=== PATIENT | male | born 1985 | race Caucasian/White ===

== ENCOUNTER 2018-05-01 19:20 | Emergency (ER) | payer OTHER ==
[2018-05-01 19:45] VITALS: BP 164/93; PULSE 78; TEMP 98.3; BMI 34.7
--- NOTE | 2018-05-01 19:54 | PDOC ---
Rapid Medical Evaluation Chief Complaint: Pain Time Seen by Provider: 05/01/18 19:41 Medical Evaluation: Allergies Allergy/AdvReac Type Severity Reaction Status Date / Time No Known Allergies Allergy Verified 03/28/16 02:50 05/01/18 19:42 c/o left foot pain x on and off x 2 years today unable to weight bear due to severe pain. + swelling. denies injury/ trauma no recent travel, prolonged sitting PE: Patient alert ox3, + pedal pulse, + ankle swelling. no calf tenderness. A: left foot pain P: xray patient to the ER for further management of care.
--- NOTE | 2018-05-01 20:24 | PDOC ---
History of Present Illness - General Chief Complaint: Pain Stated Complaint: FOOT PAIN Time Seen by Provider: 05/01/18 19:41 History Source: Patient Exam Limitations: No Limitations - History of Present Illness Initial Comments: 05/01/18 patient came for evaluation of recurrence of chronic foot pain. States upper for 2 years for intermittent across the top of his foot. Has been seen multiple occasions by podiatry, given anti-inflammatories and some. was at the [place] with [facility] 3 days ago and had recurrence of this dorsal foot pain. Has used ibuprofen with minimal resolved. Also has pain to the plantar aspect of foot. Fever, no direct trauma, feels is a recurrence of this inflammatory process Severity: reports: moderate Pain Location: reports: lower extremity Modifying Factors: improves with: cold therapy Loss of Consciousness: no loss of consciousness Associated Symptoms (Fall): denies symptoms Past History - Travel Traveled outside of the country in the last 30 days: No Close contact w/someone who was outside of country & ill: No - Past Medical History Allergies/Adverse Reactions: Allergies Allergy/AdvReac Type Severity Reaction Status Date / Time No Known Allergies Allergy Verified 03/28/16 02:50 Home Medications: Ambulatory Orders NK [No Known Home Medication] 05/01/18 COPD: No - Immunization History Immunization Up to Date: Yes - Suicide/Smoking/Psychosocial Hx Smoking History: Never smoked Have you smoked in the past 12 months: No Information on smoking cessation initiated: No Hx Alcohol Use: No Drug/Substance Use Hx: No Substance Use Type: None Review of Systems - Review of Systems Able to Perform ROS?: Yes Is the patient limited Chinese proficient: Yes Constitutional: Yes: Symptoms Reported, See HPI, Malaise. No: Fever HEENTM: No: Symptoms Reported Respiratory: No: Symptoms reported Musculoskeletal: Yes: Symptoms Reported, See HPI, Joint Pain, Joint Swelling Integumentary: Yes: See HPI. No: Symptoms Reported All Other Systems: Reviewed and Negative *Physical Exam - Vital Signs Last Vital Signs Temp Pulse Resp BP Pulse Ox 98.3 F 78 18 164/93 100 05/01/18 19:42 05/01/18 19:42 05/01/18 19:42 05/01/18 19:42 05/01/18 19:42 - Physical Exam General Appearance: Yes: Nourished, Appropriately Dressed, Apparent Distress, Mild Distress HEENT: positive: SOLOMON, Normal ENT Inspection, TMs Normal, Pharynx Normal Neck: positive: Supple. negative: Tender Extremity: positive: Normal Capillary Refill, Normal Inspection, Tender. negative: Normal Range of Motion (limited due to pain to dorsum of left midfoot with some swellign and pain to ligamentous areas. ) Integumentary: positive: Dry, Warm Neurologic: positive: slp II-XII NML intact, Fully Oriented, Alert, Normal Mood/ Affect, Normal Response, Motor Strength 5/5 *DC/Admit/Observation/Transfer Diagnosis at time of Disposition: Plantar fasciitis of left foot - Discharge Dispostion Disposition: HOME Condition at time of disposition: Stable Decision to Admit order: No - Referrals Referrals: En Pisano MD [Staff Physician] - - Patient Instructions Printed Discharge Instructions: DI for Plantar Fasciitis Additional Instructions: Rest, ice to area on and off for 15 minutes 4-6 times a day Avoid heavy lifting or exercise until pain and swelling is resolved or until further directed Keep area highly elevated to reduce swelling Wear supportive shoes/tennis shoes-sneakers Freeze water in a Coca-Cola bottle, and gently roll along bottom of foot to assist with icing the area Use splints/Km wrap as directed Followup with orthopedist in one to 2 days if not improving, if significantly improved may wait one week for followup with orthopedist May consider alternative modalities including physical therapy, acupuncture or pressure, naturopathic rubs like Arnica creams May use ibuprofen 2-200 mg tablets every 6 hours as needed for pain - Post Discharge Activity Forms/Work/School Notes: Back to Work
[2018-05-01] MEDS ORDERED: KETOROLAC TROMETHAMINE 60 MG/2 ML VIAL IM ONE (20:25)
[2018-05-01] MEDS ORDERED: KETOROLAC TROMETHAMINE 60 MG/2 ML VIAL ONE (20:26)
== END 2018-05-01 20:38 | disposition home or self-care (01) ==
LOC: JERFT 19:20
DX: M72.2 Plantar fascial fibromatosis (principal)
CPT/HCPCS: 73610-TC-LT-FY; 73630-TC-LT; 99281-25